=== PATIENT | male | born 1970 | race Caucasian/White ===

== ENCOUNTER 2020-11-28 13:38 | Emergency (ER) | payer OTHER ==
[~2020-11-28] VITALS: Ht 172.7 cm; Wt 86.0 kg
--- NOTE | 2020-11-28 13:48 | NUR ---
PT BIB LAW ENFORCEMENT FROM [facility]. PT WAS TB POSITIVE IN 2017. ON FRIDAY THE 4TH PT HAD A PERSISTENT COUGH. COVID TEST ON FRIDAY WAS NEGATIVE. PT WAS RETESTED FOR COVID FRIDAY WHICH WAS ALSO NEGATIVE. PT ALSO TESTED NEGATIVE FOR FLU A AND B. PT ACCOMPANIED BY [employer]. RESTING IN [facility]. CONNECTED TO MONITORS SENT TO RULE OUT TB
[2020-11-28 14:47] LABS: BASOPHILS % (AUTO) 1 % (0-1); EOSINOPHILS % (AUTO) 1 % (1-7); LYMPHOCYTES % (AUTO) 21 % (22-44); MEAN CORPUSCULAR HEMOGLOBIN 30.2 pg (27.5-34.5); MEAN CORPUSCULAR HGB CONC 33.6 g/dL (33.2-36.2); MEAN PLATELET VOLUME 8.7 fL (7.4-10.4); MONOCYTES % (AUTO) 7 % (2-9); NEUTROPHILS % (AUTO) 70 % (42-75); PLATELET COUNT 194 x10^3/uL (130-400); RED BLOOD COUNT 5.24 x10^6/uL (4.38-5.82); RED CELL DISTRIBUTION WIDTH 14.3 % (9.4-14.8)
[2020-11-28 15:01] LABS: ALANINE AMINOTRANSFERASE 25 U/L (12-78); ALBUMIN 3.8 g/dL (3.4-5.0); ANION GAP 4 mmol/L (5-15); CALCIUM 8.9 mg/dL (8.5-10.1); CHLORIDE 106 mmol/L (98-107); CREATININE 0.86 mg/dL (0.7-1.3)
[2020-11-28 15:03] LABS: ALKALINE PHOSPHATASE 63 U/L (45-117); BILIRUBIN,TOTAL 0.4 mg/dL (0.2-1.0); TOTAL PROTEIN 7.8 g/dL (6.4-8.2)
--- NOTE | 2020-11-28 15:18 | NUR ---
PT RESTING IN [facility]. AWAITING CT.
--- NOTE | 2020-11-28 15:30 | NUR ---
TASK RN: PT UPRIGHT ON GURNEY AWAKE & COMFORTABLE, WATCHING TV, RESPONDS APPROP TO STAFF, NAD, NO NEEDS AT THIS TIME, LAW ENFORSEMENT AT BS WHILE IN CUSTODY, CALL LIGHT WITHIN REACH.
--- NOTE | 2020-11-28 16:49 | NUR ---
SPOKE WITH CT REGARDING SCAN. PT TO BE NEXT. THEY ARE SETTING UP THE ROOM FOR [facility] PRECAUTIONS
[2020-11-28 17:32] VITALS: BP 160/82
[2020-11-28] MEDS ORDERED: OMNIPAQUE 350 MG/ML, 100ML BOTTLE ONE (17:36)
== END 2020-11-29 01:59 ==
LOC: ED 13:40
DX: B34.9 Viral infection, unspecified (principal); R06.02 Shortness of breath; R94.31 Abnormal electrocardiogram [ECG] [EKG]
CPT/HCPCS: 36415; 71045; 71260; 80053; 85025; 93005; 99285; Q9967